=== PATIENT | male | born 1955 | race Native Hawaiian/Other Pacific Islander ===

== ENCOUNTER 2019-04-05 13:02 | Emergency (ER) | payer OTHER ==
[~2019-04-05] VITALS: Ht 172.7 cm; Wt 81.6 kg
[2019-04-05 13:02] VITALS: BP 130/71; TEMP 97.7
[2019-04-05 13:55] LABS: PLATELET COUNT 234 K/uL (142-355)
[2019-04-05] MEDS ORDERED: AMLODIPINE BESYLATE PO (17:16)
[2019-04-05] MEDS ORDERED: LIPITOR40 MG PO (17:17)
[2019-04-05] MEDS ORDERED: ELIQUIS5 MG PO (17:20)
[2019-04-05] MEDS ORDERED: DIVA125C PO (17:20)
[2019-04-05] MEDS ORDERED: PEPCID20 MG PO (17:21)
[2019-04-05] MEDS ORDERED: HYDR25TA60 PO (17:23)
[2019-04-05] MEDS ORDERED: LISI20TA11 PO (17:24)
[2019-04-05] MEDS ORDERED: LOPRESSOR100 MG PO (17:25)
[2019-04-05] MEDS ORDERED: THIA100T8 PO (17:26)
== END 2019-04-05 14:38 | disposition still patient (30) ==
LOC: ED 13:17
PROVIDERS: Emergency Medicine
DX: F03.90 Unspecified dementia, unspecified severity, without behavioral disturbance, psychotic disturbance, mood disturbance, and anxiety (principal); F25.9 Schizoaffective disorder, unspecified; N18.9 Chronic kidney disease, unspecified; I48.91 Unspecified atrial fibrillation; Z04.6 Encounter for general psychiatric examination, requested by authority
CPT/HCPCS: 80053; 85027; 93005; 99285

== ENCOUNTER 2019-04-28 22:00 | Emergency (ER) | payer OTHER ==
[~2019-04-28] VITALS: Ht 180.3 cm; Wt 90.7 kg
[~2019-04-28 22:00] MED LIST: AMLODIPINE BESYLATE PO; DIVA125C PO; DONE5TAB PO; ELIQUIS5 MG PO; ESCI10TA PO; HYDR25TA60 PO; LIPITOR40 MG PO; LISI20TA11 PO; LOPRESSOR100 MG PO; MEMA5TAB PO; METO-837 PO; MIRTAZAPINE7.5 MG PO; OXCARBAZEPIN300 MG PO; PEPCID20 MG PO; RISP1TAB PO; THIA100T8 PO
[2019-04-28 22:31] LABS: PLATELET COUNT 161 K/uL (142-355)
[2019-04-28 22:56] LABS: POTASSIUM 3.4 mmol/L (3.6-5.2)
[2019-04-28 23:50] VITALS: BP 114/65; TEMP 98.2
== END 2019-04-28 23:50 | disposition short-term general hospital (02) ==
LOC: ED 22:00
PROVIDERS: Emergency Medicine
DX: T52.3X1A Toxic effect of glycols, accidental (unintentional), initial encounter (principal); R53.83 Other fatigue; I48.91 Unspecified atrial fibrillation; Y92.89 Other specified places as the place of occurrence of the external cause
CPT/HCPCS: 80053; 85027; 93005; 96365; 99285

== ENCOUNTER 2019-05-03 10:55 | Emergency (ER) | payer OTHER ==
[~2019-05-03] VITALS: Ht 180.3 cm; Wt 90.7 kg
[2019-05-03 11:37] LABS: PLATELET COUNT 104 K/uL (142-355)
[2019-05-03 12:02] LABS: PARTIAL THROMBOPLASTIN TIME 28.3 SECONDS (24.5-33.6)
[2019-05-03 12:38] LABS: POTASSIUM 3.3 mmol/L (3.6-5.2)
[2019-05-03 16:20] VITALS: BP 123/72; TEMP 98.6
== END 2019-05-03 16:20 | disposition short-term general hospital (02) ==
LOC: ED 10:55
PROVIDERS: Student in an Organized Health Care Education/Training Program
PROC: 0T9B70Z Drainage of Bladder with Drainage Device, Via Natural or Artificial Opening (ICD-10-PCS; principal; 2019-05-03)
DX: I21.3 ST elevation (STEMI) myocardial infarction of unspecified site (principal); A41.9 Sepsis, unspecified organism; J18.9 Pneumonia, unspecified organism; L89.620 Pressure ulcer of left heel, unstageable; L89.610 Pressure ulcer of right heel, unstageable; L89.210 Pressure ulcer of right hip, unstageable; N17.9 Acute kidney failure, unspecified; I48.91 Unspecified atrial fibrillation
CPT/HCPCS: 36415; 36600; 51702; 80053; 80307; 80320; 80329; 81000; 81002; 82140; 82805; 83605; 83735; 83930; 84443; 84484; 85027; 85610; 85730; 87040; 87077; 87185; 87186; 87205; 93005; 96360; 96361; 96365; 96366; 96374; 96376; 99285; J2543; J3370; J3490